=== PATIENT | male | born 1965 | race Asian ===

== ENCOUNTER 2025-11-05 21:06 | Emergency (ER) | payer OTHER, SELFPAY ==
[2025-11-05 21:42] VITALS: BP 138/90
--- NOTE | 2025-11-06 00:06 | ED.GENMED ---
History of Present Illness
General
Chief Complaint: Head Injury
Source: patient
Exam Limitations: none
Time Seen by Provider: 11/05/25 23:58
Nursing documentation reviewed up to this point in time: agreed with
History of Present Illness
History of Present Illness:
Note:
CHIEF COMPLAINT(S)
Fall with head injury
HISTORY OF PRESENT ILLNESS
The patient is a 60-year-old male with pmh of BPH who presents to the ER today with concerns of dizziness and intermittent nausea after a fall. The event occurred when he slipped on ice, resulting in him falling backward and hitting his head. He did
not loose consciousness. Post-fall, the patient experienced a brief, approximately five minutes, period of amnesia followed by gradual improvement in memory. Initially, he experienced significant dizziness, nausea, and headache, which have been
slightly improving. His daughter reports that he has been walking with a steady gait. There has been no vomiting. The patient denies any neck pain, arm or leg pain, numbness, tingling, or weakness on one side of the body. Blurry vision is also not
present. He was able to get up on his own post-fall. He lives with family and this was verified by a family member.
PAST MEDICAL AND SURGICAL HISTORY
History of prostate surgery.
PHYSICAL EXAM
General: Patient is well appearing and in no acute distress; non-toxic
Skin: Warm and dry, no rashes or lesions
Head: Normocephalic, atraumatic. No palpable hematoma of the scalp.
Eyes: Sclera non-icteric. EOMs intact.
Cardiac: Regular rate and rhythm, no murmurs
Peripheral Vascular: No lower extremity swelling or edema
Pulm: Normal respiratory effort, no wheezes, rales, rhonchi
Abdomen: No abdominal tenderness to palpation
Musculoskeletal: No midline cervical spinal tenderness. No tenderness palpation in the upper and lower extremities. No visible bony deformity. No tenderness palpation in the thoracic spine. No tenderness palpation of the facial bones.
Neuro: CN II-XII intact, no focal neurologic deficits. Normal finger-nose, [id number]. Normal gait.
Psychiatric: Appropriate mood and affect.
CHART REVIEW
No prior ER physician documentation for review or discharge summaries to review in [facility]
ELECTROCARDIOGRAM (EKG)
Not indicated
SUMMARY OF ENCOUNTER
The patient presented to the emergency department following a fall on ice with subsequent head impact. The immediate evaluation ruled out significant bleeding, pending confirmation from scans. The primary concern is a potential concussion. The
patient has shown gradual improvement in terms of memory and symptoms of dizziness and nausea.
DISPOSITION
Pending results from scans and further assessment of gait stability before discharge considerations.
Patient stable for discharge home
PLAN
Await final scan results to rule out any intracranial injury, ensure stability in walking independently, monitor symptom progression, and provide symptomatic relief for nausea if deemed necessary.
DIFFERENTIAL DIAGNOSIS
- The Differential Diagnosis includes, in no particular order and is not limited to:
- Concussion
- Intracranial hemorrhage
- Cervical spine injury
- Vestibular dysfunction
- Post-traumatic amnesia
- Subdural hematoma
- Epidural hematoma
- Skull fracture
- Benign paroxysmal positional vertigo (BPPV)
- Mild traumatic brain injury
MEDICATION RECONCILIATION
The patient is on tamsulosin (Flomax) for prostatic hyperplasia. No other regular medications were mentioned.
MEDICAL DECISION MAKING
- Complexity of Data Reviewed: None noted.
60-year-old male presents to the ER today with concerns of a posterior headache and intermittent dizziness following a fall on ice. He fell back and hit his head on the ice. He also notes some intermittent nausea as well. Symptoms of nausea and
dizziness have steadily improved as the time since the injury has increased. On assessment, patient is well-appearing no acute distress. He has no tenderness palpation of the facial bones, no midline cervical spinal tenderness. He has normal
neurologic exam. Normal gait. He went for CAT scan which shows no acute hemorrhage in the brain, no cervical spinal fracture. Suspect concussion. Discussed follow-up with primary care provider and strict return precautions.
DIAGNOSIS
- Concussion (S06.0X0A)
- Head injury
Review of Systems
Review of Systems
All Other Systems: ROS reviewed and negative except as documented in HPI and ROS
Phy Exam
Physical Exam
Physical Exam:
see hpi
Course
Orders/Labs/Results
Orders:
Orders
11/05/25 21:14
CT Head W/o Iv Contrast Urgent
Comment: fall
Reason For Exam: head injury
11/05/25 21:21
CT Cervical Spine W/o Iv Contr Urgent
Comment:
Reason For Exam: fall
Vital Signs
Initial and Last Documented VS:
Initial Vital Signs
Temp Pulse Resp BP Pulse Ox
97.4 F 72 18 138/90 97
11/05/25 21:42 11/05/25 21:42 11/05/25 21:42 11/05/25 21:42 11/05/25 21:42
Last Documented Vital Signs
Temp Pulse Resp BP Pulse Ox
97.4 F 80 18 134/75 99
11/05/25 21:42 11/06/25 01:20 11/06/25 01:20 11/06/25 01:20 11/06/25 01:20
*Pulse Oximetry
SaO2: 97
Oxygen Mode of Delivery: Room air
Patient hypoxic: no
*Critical Care Note
Total Time (30-74mins, 75-104mins- exclusive of procedures): Not Applicable
ED Attending Note
-
Portions of this chart may have been created with voice recognition software.� Occasional wrong word or��sound alike� substitutions may have occurred due to the inherent limitations of voice recognition software.
Discharge Plan
Departure
Patient Disposition: Home (Routine Discharge)
Date of Disposition: 11/06/25
Time of Disposition: 01:00
Patient with high blood pressure during this ER visit?: Yes
Condition: Good
Discharge Problem:
Head injury, Concussion
Instructions: Concussion, Adult (DC), Head Injury in Adults (DC), BLOOD PRESSURE
Referrals:
Mari Silverman MD [Family Provider, Internal Medicine]
Activity Restrictions/Additional Instructions:
Please continue monitor your symptoms. Please follow-up with your primary care provider in 1 week.
PLEASE RETURN TO ER SHOULD YOU DEVELOP WEAKNESS ON ONE-SIDED BODY VERSUS THE OTHER, DIFFICULTY AMBULATING, INTRACTABLE NAUSEA OR VOMITING, CONFUSION, DIFFICULTY SPEAKING, OR ANY OTHER SIGNS OR SYMPTOMS WORRISOME TO YOU.
Interventions
Interventions:
*General Assessment Last Done: 11/05/25 21:45
*Neglect/Abuse Screening Last Done: 11/05/25 21:45
*ED COVID-19 Vaccine History Last Done: 11/05/25 21:45
*ED Influenza Vaccine History Last Done: 11/05/25 21:45
[facility] Risk Assessment Tool Last Done: 11/06/25 00:18
*Risk Screen - Suicide (C-SSRS) Last Done: 11/05/25 21:45
*Nursing Disposition Last Done: 11/06/25 02:06
ED- Neurological Assessment Last Done: 11/06/25 00:35
ED-Skin Assessment Last Done: 11/06/25 00:35
Discharge Date and Time
Discharge Date/Time: 11/06/25 01:23
Print Language: Mandarin [place]
[2025-11-06 00:18] VITALS: BMI 25.8
[2025-11-06 00:30] VITALS: BP 129/80
[2025-11-06 01:20] VITALS: BP 134/75
== END 2025-11-06 01:23 | disposition home or self-care (01) ==
LOC: EMR 21:06
PROVIDERS: EMERGENCY PHYSICIAN Emergency Medicine; FAMILY PHYSICIAN Internal Medicine
DX: S06.0X0A Concussion without loss of consciousness, initial encounter (principal); S09.90XA Unspecified injury of head, initial encounter; R11.0 Nausea; W00.0XXA Fall on same level due to ice and snow, initial encounter; N40.0 Benign prostatic hyperplasia without lower urinary tract symptoms
CPT/HCPCS: 99284; 70450; 72125